=== PATIENT | male | born 1945 | race Caucasian/White ===

== ENCOUNTER 2019-06-26 16:04 | Inpatient (IN) | payer MEDICARE ==
[~2019-06-26] VITALS: Ht 182.9 cm; Wt 98.7 kg
[2019-06-26] MEDS ORDERED: TETANUS/DIPHTHERIA TOXOID [ADULT] 0.5 ML VIAL IM ONE (16:14)
[2019-06-26 16:21] LABS: BASOPHILS % (AUTO) 0.2 % (0.0-5.0); EOSINOPHILS % (AUTO) 0.4 % (0.0-8.0); HEMATOCRIT 44.7 % (42-54); LYMPHOCYTES % (AUTO) 2.6 % (21.0-51.0); MEAN CORPUSCULAR HEMOGLOBIN 29.6 pg (27.0-33.0); MEAN CORPUSCULAR HGB CONC 33.1 g/dL (32.0-36.0); MEAN CORPUSCULAR VOLUME 89.4 fL (79-99); MONOCYTES % (AUTO) 10.4 % (3.0-13.0); NEUTROPHILS % (AUTO) 85.8 % (40.0-77.0); PLATELET COUNT (AUTO) 185 K/uL (130-400); RED CELL DISTRIBUTION WIDTH 13.7 % (11.0-15.5); WHITE BLOOD COUNT (AUTO) 20.9 K/uL (4.8-10.8)
[2019-06-26 16:33] LABS: CREATININE 1.3 mg/dL (0.5-1.5); POTASSIUM 4.2 mmol/L (3.5-5.1)
[2019-06-26 16:36] LABS: INR 0.99 (0.85-1.15); PARTIAL THROMBOPLASTIN TIME 30.8 SEC (26.3-35.5); PROTHROMBIN TIME 10.7 SEC (9.6-11.6)
[2019-06-26 17:01] LABS: ALBUMIN 4.2 g/dL (3.5-5.0); TOTAL PROTEIN, SERUM 7.5 g/dL (6.0-8.3)
[2019-06-26 17:06] LABS: APPEARANCE,URINE CLOUDY (CLEAR); BILIRUBIN,URINE NEGATIVE (NEGATIVE); COLOR,URINE YELLOW (YELLOW); GLUCOSE, URINE (UA) 250 mg/dL (NEGATIVE); KETONES,URINE 5 mg/dL (NEGATIVE); LEUKOCYTE ESTERASE ,URINE MODERATE (NEGATIVE); NITRATE,URINE NEGATIVE (NEGATIVE); OCCULT BLOOD,URINE MODERATE (NEGATIVE); PH,URINE 5.5 (5.0-8.0); PROTEIN,URINE TRACE mg/dL (NEGATIVE); UROBILINOGEN,URINE 0.2 mg/dL (0.2-1.0)
[2019-06-26 17:13] LABS: BACTERIA,URINE Moderate /HPF (None Seen); SQUAMOUS EPITHELIAL CELL,UR Rare /HPF (0-2); WBC,URINE >100 /HPF (0-1)
[2019-06-26] MEDS ORDERED: CEFTRIAXONE SODIUM 1 GM ONE (17:21)
[2019-06-26] MEDS ORDERED: ONDANSETRON HCL 4 MG/2 ML VIAL IV PRN (19:00)
[2019-06-26] MEDS ORDERED: GLUCAGON 1MG KIT 1 MG ML IM PRN (19:15)
[2019-06-26] MEDS ORDERED: DEXTROSE 50%-WATER 50 ML DISP.SYRIN IV PRN (19:15)
[2019-06-26] MEDS: CEFTRIAXONE SODIUM 1 GM IVP SCH (19:15)
[2019-06-26] MEDS: SODIUM CHLORIDE 0.9% 1000ML 1,000 ML IV SCH (19:15)
[2019-06-26] MEDS ORDERED: KETOROLAC TROMETHAMINE 30MG/ML IV PRN (19:15)
[2019-06-26] MEDS ORDERED: KETOROLAC TROMETHAMINE 30MG/ML ONE (19:32)
[2019-06-26] MEDS: INSULIN HUMULIN R 100 UNIT/ML 3ML SQ SCH (21:00)
[2019-06-26 21:35] VITALS: BP 137/77
[2019-06-26 23:00] VITALS: BP 132/79
[2019-06-27] MEDS: FAMOTIDINE/PF 20 MG/2 ML VIAL IV SCH ×3 (00:06→20:10)
[2019-06-27] MEDS ORDERED: METF-444 PO ×2 (01:40)
[2019-06-27] MEDS ORDERED: CELE-84 PO (01:40)
[2019-06-27] MEDS ORDERED: OMEP20TA25 PO (01:40)
[2019-06-27] MEDS ORDERED: VIT-12 PO (01:40)
[2019-06-27] MEDS ORDERED: CHOL2000 PO (01:40)
[2019-06-27] MEDS ORDERED: MAGN250T10 PO (01:40)
[2019-06-27] MEDS ORDERED: CYAN50008 PO (01:40)
[2019-06-27] MEDS ORDERED: POTA99TA21 PO (01:40)
[2019-06-27] MEDS ORDERED: GLIP5TAB11 PO ×2 (01:40)
[2019-06-27 03:00] VITALS: BP 136/88
[2019-06-27] MEDS: SODIUM CHLORIDE 0.9% 1000ML 1,000 ML IV SCH ×2 (04:31→11:15)
[2019-06-27 04:55] LABS: BASOPHILS % (AUTO) 0.2 % (0.0-5.0); EOSINOPHILS % (AUTO) 0.1 % (0.0-8.0); HEMATOCRIT 41.2 % (42-54); LYMPHOCYTES % (AUTO) 3.5 % (21.0-51.0); MEAN CORPUSCULAR HEMOGLOBIN 29.7 pg (27.0-33.0); MEAN CORPUSCULAR HGB CONC 32.8 g/dL (32.0-36.0); MEAN CORPUSCULAR VOLUME 90.5 fL (79-99); MONOCYTES % (AUTO) 10.1 % (3.0-13.0); PLATELET COUNT (AUTO) 164 K/uL (130-400); RED BLOOD CELL COUNT(AUTO) 4.55 MIL/uL (4.50-6.20); WHITE BLOOD COUNT (AUTO) 17.9 K/uL (4.8-10.8)
[2019-06-27 05:13] LABS: HEMOGLOBIN A1C 6.9 % (4.0-6.0)
[2019-06-27 05:30] LABS: ALANINE AMINOTRANSFERASE 31 U/L (12-78); ALBUMIN 3.4 g/dL (3.5-5.0); ASPARTATE AMINOTRANSFERASE 29 U/L (10-37); BILIRUBIN,TOTAL 0.7 mg/dL (0.2-1.0); CARBON DIOXIDE 28 mmol/L (21-32); CHLORIDE 105 mmol/L (101-111); CREATININE 1.2 mg/dL (0.5-1.5); GLOMERULAR FILTR. RATE CALC 63 mL/min (>60); GLUCOSE,RANDOM 122 mg/dL (70-105); MYOGLOBIN 406 ng/mL (10-92); POTASSIUM 4.6 mmol/L (3.5-5.1); SODIUM SERUM 141 mmol/L (136-145); TOTAL PROTEIN, SERUM 6.7 g/dL (6.0-8.3); TROPONIN I < 0.04 ng/mL (0.00-0.06); UREA NITROGEN, BLOOD 22 mg/dL (7-18); URIC ACID 5.3 mg/dL (2.6-7.2)
[2019-06-27 05:40] LABS: CREATINE KINASE, TOTAL 940 U/L (21-232)
[2019-06-27 06:07] LABS: ERYTHROCYTE SEDIMENTATION RATE 30 MM/HR (0-20)
[2019-06-27] MEDS: INSULIN HUMULIN R 100 UNIT/ML 3ML SQ SCH ×4 (06:07→20:17)
[2019-06-27] MEDS: CEFTRIAXONE SODIUM 1 GM IVP SCH ×2 (06:18→20:09)
--- NOTE | 2019-06-27 07:40 | NUR ---
NOTE PATIENT AAOX3. DENIES PAIN AT THIS TIME IF HE DOES NOT MOVE HIS RIGHT KNEE OTHERWISE HE HAS SWELLING AND PAIN TO RIGHT KNEE FROM FALL HE SUFFERED AT HOME. HE WAS THEN STUCK AT HOME BECAUSE HE FELL DOWN INSIDE HIS TRAVEL TRAILER AND WAS NOT ABLE TO GET UP OR CALL FOR HELP FOR ONE DAY. FINALLY HE SCREAMED FOR HELP SOMEONE HELPED HIM AND SEND AN AMBULANCE TO BRING HIM HERE. DX RHABDOMYOLYSIS, HE IS ON IVF AT 125 CC/HR.
[2019-06-27 08:00] VITALS: BP 129/77
[2019-06-27 11:00] VITALS: BP 121/71
[2019-06-27 16:00] VITALS: BP 122/73
--- NOTE | 2019-06-27 17:45 | NUR ---
D/C PLAN CM spoke to pt regarding d/c planning. Pt is ind. and lives alone. States he lives in [facility]. CM asked if any local family or friends. States he does not have anyone at this time to assist. CM spoke to pt about d/c planning to inpatient rehab at [facility] for PT. States he prefers to return home. States he will think about it. Pt is pending u/s and ortho consult. States he was ind. with ADLs previously and has a cane to ambulate. Plan to home vs IRU. CM to f/u. Addendum: 06/27/19 at 1746 by MARY KATE BARTHOLOMEW CM Amended: Links added.
[2019-06-27] MEDS ORDERED: CELECOXIB 200 MG CAP PO PRN (18:30)
[2019-06-27 19:53] VITALS: BP 140/85
[2019-06-27 23:41] VITALS: BP 138/82
[2019-06-28 04:39] VITALS: BP 135/81
[2019-06-28 05:04] LABS: BASOPHILS % (AUTO) 0.1 % (0.0-5.0); HEMATOCRIT 38.8 % (42-54); LYMPHOCYTES % (AUTO) 5.5 % (21.0-51.0); MEAN CORPUSCULAR HGB CONC 32.5 g/dL (32.0-36.0); MEAN CORPUSCULAR VOLUME 89.2 fL (79-99); MONOCYTES % (AUTO) 8.1 % (3.0-13.0); NEUTROPHILS % (AUTO) 85.8 % (40.0-77.0); PLATELET COUNT (AUTO) 143 K/uL (130-400); RED BLOOD CELL COUNT(AUTO) 4.35 MIL/uL (4.50-6.20); RED CELL DISTRIBUTION WIDTH 13.7 % (11.0-15.5); WHITE BLOOD COUNT (AUTO) 12.4 K/uL (4.8-10.8)
[2019-06-28 05:40] LABS: ALBUMIN 2.8 g/dL (3.5-5.0); BILIRUBIN,TOTAL 0.5 mg/dL (0.2-1.0); POTASSIUM 3.6 mmol/L (3.5-5.1); TOTAL PROTEIN, SERUM 6.3 g/dL (6.0-8.3)
[2019-06-28] MEDS: INSULIN HUMULIN R 100 UNIT/ML 3ML SQ SCH ×4 (05:45→21:00)
[2019-06-28 06:01] LABS: CRP QUANTITATIVE 471.9 mg/L (0.00-9.0)
[2019-06-28] MEDS: CEFTRIAXONE SODIUM 1 GM IVP SCH ×2 (06:48→19:39)
[2019-06-28 08:17] VITALS: BP 129/91
[2019-06-28] MEDS: FAMOTIDINE/PF 20 MG/2 ML VIAL IV SCH ×2 (08:22→21:00)
[2019-06-28] MEDS: PANTOPRAZOLE SODIUM 40 MG TABLET.DR PO SCH (08:23)
[2019-06-28] MEDS: CYANOCOBALAMIN (VITAMIN B-12) 1,000 MCG TABLET PO SCH (08:23)
[2019-06-28] MEDS: ZINC PO SCH (08:24)
[2019-06-28] MEDS: [UNRECOGNIZED DRUG - OTHER] PO SCH (08:24)
[2019-06-28] MEDS: COPPER PO SCH (08:24)
[2019-06-28] MEDS: VIT A PO SCH (08:24)
[2019-06-28] MEDS: SELENIUM PO SCH (08:24)
[2019-06-28] MEDS: CHOLECALCIFEROL 50 MCG PO SCH (08:25)
[2019-06-28] MEDS ORDERED: LIDOCAINE 1%-EPI 1:100,000 20 ML VIAL IJ SCH (09:00)
[2019-06-28] MEDS: SODIUM CHLORIDE 0.9% 1000ML 1,000 ML IV SCH ×3 (09:13→16:45)
--- NOTE | 2019-06-28 09:15 | NUR ---
DR. Katlyn CELESTIN/Tres CHOI HERE TO EVALUATE PT. PT DOING WELL. DENIES PAIN TO RIGHT KNEE AT THIS. LEG IS SWOLLEN. DR. CHOI SPOKE TO PT AND INFORMED HIM OF HIS RECOMMENDATIONS TO ASPIRATE KNEE OR LEAVE KNEE ALONE TO SEE IF IMPROVEMENT OCCURS. PT DECIDED TO PROCEED WITH ASPIRATION OF RIGHT KNEE. DR. CHOI TO PERFORM LATER IN DAY.
[2019-06-28 11:39] VITALS: BP 144/89
--- NOTE | 2019-06-28 12:15 | NUR ---
DR. CHOI HERE FOR PROCEDURE. TIME OUT PERFORMED AT [address] CHOI PERFORMED ASPIRATION OF RIGHT KNEE AT BEDSIDE USING STERILE TECHNIQUE. PT TOLERATED PROCEDURE WELL. ORDERS RECEIVED AND CARRIED OUT. MICHA WRAP TO RIGHT KNEE PER DR. CHOI. ORDERS CARRIED OUT. NO REDNESS, SWELLING, BLEEDING NOTED TO SITE. PT INSTRUCTED TO REMAIN IN BED.
[2019-06-28 13:51] LABS: APPEARANCE BODY FLUID TURBID (CLEAR); BF LYMPHOCYTE 3 %; BF MESOTHELIAL 1 %; BF MONOCYTE 3 %; COLOR,BODY FLUID YELLOW (LT YELLOW); SPECIMENTYPE,BODY FLUID SYNOVIAL; TOTAL VOLUME,BODY FLUID 20 mL
[2019-06-28 13:52] LABS: BODY FLUID RBC 2125 /cu. mm.; BODY FLUID WBC 73275 /cu. mm.
--- NOTE | 2019-06-28 14:05 | NUR ---
DR. CAMACHO SAUER HERE TO EVALUATE. ORDERS TO CONTINUE ROCEPHIN AND WILL AWAIT RESULTS FROM ASPIRATION OF KNEE.
[2019-06-28] MEDS ORDERED: VANCOMYCIN PROTOCOL PER PHARMACY IV SCH (14:45)
[2019-06-28] MEDS ORDERED: COMPOUND IV REFRIGERATED 1 EACH IVSOLN MISC PRN (15:15)
[2019-06-28] MEDS: VANCOMYCIN 1.5 GM in SODIUM CHLORIDE 0.9% 250 ML IV SCH (16:50)
[2019-06-28 17:09] VITALS: BP 135/87
[2019-06-28 20:00] VITALS: BP 120/77
--- NOTE | 2019-06-28 21:25 | NUR ---
SURGERY Dr CHOI called and scheduled pt for I and D of rt knee in am.He said he will come and talk to pt in am.Notified [facility] [employer] In[employer].Pt updated on POC.
[2019-06-28 23:55] VITALS: BP 141/93
[2019-06-29] VITALS (27 sets, daily range): BP systolic 112–149; BP diastolic 57–91
--- NOTE | 2019-06-29 04:59 | NUR ---
CONSENT Pt wants to talk to Dr Servin first before he consents for the procedure.Dr Servin said he will get the consent himself.
[2019-06-29] MEDS: CEFTRIAXONE SODIUM 1 GM IVP SCH ×2 (05:27→21:11)
[2019-06-29] MEDS: SODIUM CHLORIDE 0.9% 1000ML 1,000 ML IV SCH ×4 (05:27→23:58)
[2019-06-29 06:11] LABS: INR 0.89 (0.85-1.15); PARTIAL THROMBOPLASTIN TIME 37.3 SEC (26.3-35.5); PROTHROMBIN TIME 9.7 SEC (9.6-11.6)
[2019-06-29] MEDS: INSULIN HUMULIN R 100 UNIT/ML 3ML SQ SCH ×4 (06:12→21:20)
[2019-06-29] MEDS: VANCOMYCIN 1.5 GM in SODIUM CHLORIDE 0.9% 250 ML IV SCH ×2 (06:17→21:22)
[2019-06-29 06:23] LABS: BASOPHILS % (AUTO) 0.3 % (0.0-5.0); EOSINOPHILS % (AUTO) 0.4 % (0.0-8.0); HEMATOCRIT 38.1 % (42-54); LYMPHOCYTES % (AUTO) 10.5 % (21.0-51.0); MEAN CORPUSCULAR HEMOGLOBIN 28.9 pg (27.0-33.0); MEAN CORPUSCULAR HGB CONC 32.8 g/dL (32.0-36.0); MEAN CORPUSCULAR VOLUME 88.2 fL (79-99); MONOCYTES % (AUTO) 8.6 % (3.0-13.0); NEUTROPHILS % (AUTO) 79.8 % (40.0-77.0); PLATELET COUNT (AUTO) 165 K/uL (130-400); RED BLOOD CELL COUNT(AUTO) 4.32 MIL/uL (4.50-6.20); RED CELL DISTRIBUTION WIDTH 13.4 % (11.0-15.5); WHITE BLOOD COUNT (AUTO) 7.9 K/uL (4.8-10.8)
[2019-06-29 06:47] LABS: ALBUMIN 2.2 g/dL (3.5-5.0); BILIRUBIN,TOTAL 0.7 mg/dL (0.2-1.0); CREATININE 0.9 mg/dL (0.5-1.5); TOTAL PROTEIN, SERUM 6.2 g/dL (6.0-8.3)
[2019-06-29] MEDS ORDERED: LIDOCAINE PF 2% 5ML ABBOJECT ONE (07:10)
[2019-06-29] MEDS ORDERED: ONDANSETRON HCL 4 MG/2 ML VIAL ONE (07:10)
[2019-06-29] MEDS ORDERED: GLYCOPYRROLATE 1 MG/5 ML SYRINGE ONE (07:11)
[2019-06-29] MEDS ORDERED: NEOSTIGMINE 5MG/5ML SYR IV ONE (07:11)
[2019-06-29] MEDS ORDERED: DEXAMETHASONE SOD PHOSPHATE 10MG/ML 1ML VIAL ONE (07:11)
[2019-06-29] MEDS ORDERED: PROPOFOL 10 MG/ML 20ML VIAL IV ONE (07:11)
[2019-06-29] MEDS ORDERED: MIDAZOLAM HCL 1 MG/ML 2ML VIAL ONE (07:11)
[2019-06-29] MEDS ORDERED: FENTANYL CITRATE PF 50 MCG/1 ML 2ML VIAL ONE ×2 (07:12→08:45)
[2019-06-29] MEDS ORDERED: ROCURONIUM 10MG/1ML SYR 10 MG/ML ML ONE (07:12)
--- NOTE | 2019-06-29 07:20 | NUR ---
SURGERY PT TAKEN TO PROCEDURE FOR I&D BY OR STAFF. PT DENIES ANY PAIN AT THIS TIME.
[2019-06-29] MEDS ORDERED: EPHEDRINE SULFATE 50 MG/ML AMPULE ONE (08:59)
[2019-06-29] MEDS ORDERED: ENOXAPARIN SODIUM 40 MG/0.4 ML SYRINGE SQ SCH (09:00)
[2019-06-29] MEDS: [UNRECOGNIZED DRUG - OTHER] PO SCH (09:00)
[2019-06-29] MEDS: CHOLECALCIFEROL 50 MCG PO SCH (09:00)
[2019-06-29] MEDS: VIT A PO SCH (09:00)
[2019-06-29] MEDS: COPPER PO SCH (09:00)
[2019-06-29] MEDS: ZINC PO SCH (09:00)
[2019-06-29] MEDS: SELENIUM PO SCH (09:00)
[2019-06-29] MEDS: ACETAMINOPHEN EXTRA STRENGTH 500 MG TABLET PO SCH ×2 (09:30→21:12)
[2019-06-29] MEDS ORDERED: POTASSIUM CHLORIDE 20MEQ/100ML 100 ML IV PRN (09:30)
[2019-06-29] MEDS ORDERED: OXYCODONE HCL 5 MG TAB PO PRN (09:30)
--- NOTE | 2019-06-29 10:35 | NUR ---
PROCEDURE PT RETURNED FROM SURGERY BY PACU STAFF LASHANDA RN. PT AAOX3. NEW ORDERS RECEIVED FOR SALINE AT 60ML/HR PER DR. CHOI. TEDS PLACED ON OPERATED KNEE PER DR. CHOI. DRSG TO RIGHT LEG DRY AND INTACT. NO BLEEDING, OOZING NOTED TO SITE. CECILIA X1 IN PLACE DRAINING WITH 10ML OF SANGUINOUS FLUID IN PLACE. DENIES PAIN.
[2019-06-29] MEDS: PANTOPRAZOLE SODIUM 40 MG TABLET.DR PO SCH (11:00)
--- NOTE | 2019-06-29 11:00 | NUR ---
DR DR. PELLETIER AND DR. URIOSTEGUI HERE TO EVALUATE PT. PER DR. SAUER, PT TO CONTINUE CURRENT ANTIBIOTIC TX.
[2019-06-29] MEDS: CYANOCOBALAMIN (VITAMIN B-12) 1,000 MCG TABLET PO SCH (11:01)
[2019-06-29] MEDS: FAMOTIDINE/PF 20 MG/2 ML VIAL IV SCH ×2 (11:01→21:11)
--- NOTE | 2019-06-29 11:30 | NUR ---
SITE CHECK SITE TO RIGHT KNEE DRSG DRY AND INTACT. JPX1 INTACT. 20ML OF SANGUINEOUS DRAINAGE
--- NOTE | 2019-06-29 12:30 | NUR ---
SITE CHECK SITE TO RIGHT KNEE DRSG DRY AND INTACT. JPX1 INTACT. 20ML OF SANGUINEOUS DRAINAGE
--- NOTE | 2019-06-29 12:45 | NUR ---
RESPIRATORY RESPIRATORY HERE. TEaching PROVIDED FOR IS EVERY HOUR WHILE AWAKE. COUGHING AND DEEP BEARTHING ENCOURAGED EVERY 2 HOURS. PT VERBALIZED UNDERSTANDING.
[2019-06-29] MEDS: PSYLLIUM SEED 1 EACH PACKET PO SCH (13:08)
--- NOTE | 2019-06-29 13:30 | NUR ---
SITE CHECK SITE TO RIGHT KNEE DRSG DRY AND INTACT. JPX1 INTACT. 20ML OF SANGUINEOUS DRAINAGE
--- NOTE | 2019-06-29 16:04 | NUR ---
SITE CHECK SITE TO RIGHT KNEE DRSG DRY AND INTACT. JPX1 INTACT. 20ML OF SANGUINEOUS DRAINAGE
--- NOTE | 2019-06-29 16:44 | NUR ---
REPORT REPORT GIVEN TO OLIVER ACEVES. PT DOING WELL. DENIES ANY PAIN. SITTING IN BED. RESTING
--- NOTE | 2019-06-29 21:26 | NUR ---
CECILIA DRAIN Cecilia drain came out,as per pt,"It must have been stuck when I got up to the bedside commode'.Cecilia tubing tip intact.No bleeding noted.Elvis wrap bandage to rt knee dry and intact,good CMS.Dr Servin notified via phone.Cecilia drain ahd 10 ml serousanguinous drainage. Addendum: 06/29/19 at 2128 by DANY BRADY RN RN Amended: Links added.
[2019-06-30] MEDS: ACETAMINOPHEN EXTRA STRENGTH 500 MG TABLET PO SCH ×3 (01:30→17:20)
[2019-06-30] MEDS: SODIUM CHLORIDE 0.9% 1000ML 1,000 ML IV SCH ×2 (02:10→13:34)
[2019-06-30 03:37] VITALS: BP 110/63
[2019-06-30 05:25] LABS: BASOPHILS % (AUTO) 0.1 % (0.0-5.0); HEMATOCRIT 35.2 % (42-54); LYMPHOCYTES % (AUTO) 7.9 % (21.0-51.0); MEAN CORPUSCULAR HEMOGLOBIN 29.5 pg (27.0-33.0); MEAN CORPUSCULAR HGB CONC 33.2 g/dL (32.0-36.0); MEAN CORPUSCULAR VOLUME 88.7 fL (79-99); MONOCYTES % (AUTO) 8.6 % (3.0-13.0); NEUTROPHILS % (AUTO) 82.7 % (40.0-77.0); PLATELET COUNT (AUTO) 192 K/uL (130-400); RED BLOOD CELL COUNT(AUTO) 3.97 MIL/uL (4.50-6.20); RED CELL DISTRIBUTION WIDTH 13.2 % (11.0-15.5); WHITE BLOOD COUNT (AUTO) 8.3 K/uL (4.8-10.8)
[2019-06-30] MEDS: CEFTRIAXONE SODIUM 1 GM IVP SCH ×2 (05:36→21:04)
--- NOTE | 2019-06-30 05:59 | NUR ---
STATUS Pt sleeping this time,,was medicated once with Oxycodone for pain.Rt knee dressing reinforced,pt states he can move his rt knee better,swelling had subsided.Good CMS noted to rt foot.
[2019-06-30] MEDS: INSULIN HUMULIN R 100 UNIT/ML 3ML SQ SCH ×4 (06:06→21:29)
[2019-06-30 06:22] LABS: ALBUMIN 2.3 g/dL (3.5-5.0); BILIRUBIN,TOTAL 0.4 mg/dL (0.2-1.0); POTASSIUM 3.6 mmol/L (3.5-5.1); TOTAL PROTEIN, SERUM 5.9 g/dL (6.0-8.3)
[2019-06-30 08:25] VITALS: BP 116/61
[2019-06-30] MEDS: ZINC PO SCH (09:00)
[2019-06-30] MEDS: CHOLECALCIFEROL 50 MCG PO SCH (09:00)
[2019-06-30] MEDS: SELENIUM PO SCH (09:00)
[2019-06-30] MEDS: [UNRECOGNIZED DRUG - OTHER] PO SCH (09:00)
[2019-06-30] MEDS: VIT A PO SCH (09:00)
[2019-06-30] MEDS: COPPER PO SCH (09:00)
[2019-06-30] MEDS: FAMOTIDINE/PF 20 MG/2 ML VIAL IV SCH ×2 (10:02→21:04)
[2019-06-30] MEDS: POLYETHYLENE GLYCOL 3350 17 GM POWD.PACK PO SCH (10:03)
[2019-06-30] MEDS: PANTOPRAZOLE SODIUM 40 MG TABLET.DR PO SCH (10:03)
[2019-06-30] MEDS: CYANOCOBALAMIN (VITAMIN B-12) 1,000 MCG TABLET PO SCH (10:04)
[2019-06-30 11:11] VITALS: BP 116/73
[2019-06-30] MEDS: PSYLLIUM SEED 1 EACH PACKET PO SCH (11:15)
[2019-06-30] MEDS: VANCOMYCIN 1.5 GM in SODIUM CHLORIDE 0.9% 250 ML IV SCH ×2 (11:15→21:04)
--- NOTE | 2019-06-30 12:30 | NUR ---
PT SITTING IN CHAIR, NO COMPLAINTS WILL CONTINUE TO MONITOR.
[2019-06-30] MEDS ORDERED: LACTULOSE 20 GM/30 ML UDCUP PO SCH (14:00)
[2019-06-30 14:05] LABS: INR 0.88 (0.85-1.15); PROTHROMBIN TIME 9.6 SEC (9.6-11.6)
[2019-06-30 16:13] VITALS: BP 134/82
--- NOTE | 2019-06-30 16:15 | NUR ---
PT BACK IN BED DRESSING CHANGED CLEANED WITH NS, 4X4 TO RIGHT KNEE. PT RESTING COMFORTABLY WILL CONTINUE TO MONITOR PT.
--- NOTE | 2019-06-30 19:20 | NUR ---
VERBAL BILLIE REC'D FOR [facility] AND REFERRAL INITIATED SPOKE TO ELMIRA IZAGUIRRE INCLUDING [facility] SENT- JUST NEED COVMARIKA FORM SIGNED PT RONALD [facility] AND ANDREEA AWARE Addendum: 06/30/19 at 1920 by DEREK WHITTAKER RN CM Amended: Links added.
[2019-06-30 20:04] VITALS: BP 128/76
[2019-06-30 23:35] VITALS: BP 137/84
[2019-07-01] MEDS: SODIUM CHLORIDE 0.9% 1000ML 1,000 ML IV SCH ×2 (02:38→15:58)
[2019-07-01] MEDS: ACETAMINOPHEN EXTRA STRENGTH 500 MG TABLET PO SCH ×3 (03:08→18:06)
[2019-07-01 04:06] VITALS: BP 148/94
[2019-07-01 05:25] LABS: BASOPHILS % (AUTO) 0.4 % (0.0-5.0); EOSINOPHILS % (AUTO) 1.4 % (0.0-8.0); HEMATOCRIT 36.4 % (42-54); LYMPHOCYTES % (AUTO) 17.9 % (21.0-51.0); MEAN CORPUSCULAR HEMOGLOBIN 28.8 pg (27.0-33.0); MEAN CORPUSCULAR HGB CONC 32.7 g/dL (32.0-36.0); MEAN CORPUSCULAR VOLUME 88.1 fL (79-99); MONOCYTES % (AUTO) 12.1 % (3.0-13.0); NEUTROPHILS % (AUTO) 67.5 % (40.0-77.0); PLATELET COUNT (AUTO) 204 K/uL (130-400); RED BLOOD CELL COUNT(AUTO) 4.13 MIL/uL (4.50-6.20); RED CELL DISTRIBUTION WIDTH 13.5 % (11.0-15.5); WHITE BLOOD COUNT (AUTO) 7.3 K/uL (4.8-10.8)
[2019-07-01] MEDS: INSULIN HUMULIN R 100 UNIT/ML 3ML SQ SCH ×4 (07:30→20:59)
[2019-07-01] MEDS: CEFTRIAXONE SODIUM 1 GM IVP SCH ×2 (08:00→18:04)
[2019-07-01 08:01] VITALS: BP 146/89
[2019-07-01] MEDS: ZINC PO SCH (09:00)
[2019-07-01] MEDS: [UNRECOGNIZED DRUG - OTHER] PO SCH (09:00)
[2019-07-01] MEDS: COPPER PO SCH (09:00)
[2019-07-01] MEDS: CHOLECALCIFEROL 50 MCG PO SCH (09:00)
[2019-07-01] MEDS: VIT A PO SCH (09:00)
[2019-07-01] MEDS: SELENIUM PO SCH (09:00)
[2019-07-01] MEDS: FAMOTIDINE/PF 20 MG/2 ML VIAL IV SCH ×2 (09:30→20:58)
[2019-07-01] MEDS: POLYETHYLENE GLYCOL 3350 17 GM POWD.PACK PO SCH (09:30)
[2019-07-01] MEDS ORDERED: BISACODYL 5 MG TABLET.DR PO PRN (09:30)
[2019-07-01] MEDS: PANTOPRAZOLE SODIUM 40 MG TABLET.DR PO SCH (09:31)
[2019-07-01] MEDS: CYANOCOBALAMIN (VITAMIN B-12) 1,000 MCG TABLET PO SCH (09:32)
[2019-07-01] MEDS: VANCOMYCIN 1.5 GM in SODIUM CHLORIDE 0.9% 250 ML IV SCH ×2 (09:33→20:59)
[2019-07-01 11:15] VITALS: BP 123/74
[2019-07-01] MEDS: PSYLLIUM SEED 1 EACH PACKET PO SCH (11:30)
[2019-07-01] MEDS ORDERED: LACTULOSE 20 GM/30 ML UDCUP PO SCH (12:15)
[2019-07-01] MEDS ORDERED: BISACODYL 10 MG SUPP.RECT RC ONE (14:00)
--- NOTE | 2019-07-01 15:01 | NUR ---
CM Note: [facility] NR CM spoke to Florentino granados/Liat JOHNSON. Pt has approval. EMS arranged and faxed for today, primary nurse to call [facility] once pt ready to DC. Primary nurse aware. CM to cont to follow up.
[2019-07-01 16:21] VITALS: BP 140/87
[2019-07-01 20:19] VITALS: BP 152/93
[2019-07-01 23:16] VITALS: BP 141/89
[2019-07-02] MEDS: ACETAMINOPHEN EXTRA STRENGTH 500 MG TABLET PO SCH ×3 (02:03→18:50)
[2019-07-02 03:38] VITALS: BP 151/98
[2019-07-02] MEDS: SODIUM CHLORIDE 0.9% 1000ML 1,000 ML IV SCH (05:18)
[2019-07-02] MEDS: CEFTRIAXONE SODIUM 1 GM IVP SCH ×2 (07:20→19:38)
[2019-07-02] MEDS: INSULIN HUMULIN R 100 UNIT/ML 3ML SQ SCH ×3 (07:20→16:30)
[2019-07-02 08:00] VITALS: BP 129/71
[2019-07-02] MEDS: SELENIUM PO SCH (09:00)
[2019-07-02] MEDS: [UNRECOGNIZED DRUG - OTHER] PO SCH (09:00)
[2019-07-02] MEDS: CHOLECALCIFEROL 50 MCG PO SCH (09:00)
[2019-07-02] MEDS: VIT A PO SCH (09:00)
[2019-07-02] MEDS: ZINC PO SCH (09:00)
[2019-07-02] MEDS: COPPER PO SCH (09:00)
[2019-07-02] MEDS ORDERED: BISACODYL 10 MG SUPP.RECT RC PRN (09:30)
[2019-07-02 12:00] VITALS: BP 131/79
[2019-07-02] MEDS: FAMOTIDINE/PF 20 MG/2 ML VIAL IV SCH (12:18)
[2019-07-02] MEDS: CYANOCOBALAMIN (VITAMIN B-12) 1,000 MCG TABLET PO SCH (12:19)
[2019-07-02] MEDS: PANTOPRAZOLE SODIUM 40 MG TABLET.DR PO SCH (12:20)
[2019-07-02] MEDS: POLYETHYLENE GLYCOL 3350 17 GM POWD.PACK PO SCH (12:20)
--- NOTE | 2019-07-02 13:36 | NUR ---
RANDA SCREEN - LOS X 6 DAYS Pt admitted for Acute rhabdomyolysis. Pt tolerating 75gmCCD with no report of GI distress. Good PO intake at 100%. Pt s/p I&D. LBM 06/30. Recommend 60mL ProMod QD. RD to continue to monitor. Please notify as additional nutrition concerns arise. Thank you. Addendum: 07/02/19 at [address] DE LA PAZ [address] RD Amended: Links added.
[2019-07-02] MEDS: PSYLLIUM SEED 1 EACH PACKET PO SCH (14:24)
[2019-07-02 16:00] VITALS: BP 116/80
--- NOTE | 2019-07-02 19:53 | NUR ---
PT REPORT GIVEN VIA TELEPHONE TO LAURO JAMESON AT LOCATED WITHIN [facility].
--- NOTE | 2019-07-02 20:36 | NUR ---
DISCHARGE PT DISCHARGED TO [facility]. PAPERWORK GIVEN TO EMS. ALL PATIENT BELONGINGS COLLECTED AND GIVEN TO EMS. DRESSING TO RIGHT KNEE DRY AND INTACT. PICC LINE TO LEFT UPPER EXTREMITY DRESSING DRY ND INTACT, PIV TO RIGHT FOREARM DISCONTINUED, CATHETER TIP INTACT. PATIENT TRANSFERRED OUT VIA STRETCHER AWAKE, ALERT AND VERBALLY RESPONSIVE. NO C/O PAIN OR DISCOMFORT AT THIS TIME.
[2019-07-02] MEDS ORDERED: VANCOMYCIN 1.25 GM in SODIUM CHLORIDE 0.9% 250 ML IV SCH (21:00)
[2019-09-13] MEDS ORDERED: POLY17PO29 PO (01:07)
[2019-09-13] MEDS ORDERED: PANT40TA PO (01:07)
[2019-09-13] MEDS ORDERED: ZINC57OI4 TP (01:07)
[2019-09-13] MEDS ORDERED: ONDA-104 PO (01:07)
[2019-09-13] MEDS ORDERED: LOPE2TAB26 PO (01:07)
[2019-09-13] MEDS ORDERED: AMOX500C2 PO (01:07)
[2019-09-13] MEDS ORDERED: TRAM50TA4 PO (01:07)
[2019-09-13] MEDS ORDERED: DOCU100C33 PO (01:07)
[2019-09-13] MEDS ORDERED: DIPH25TA51 PO (01:07)
[2019-09-13] MEDS ORDERED: ATOR40TA71 PO (01:07)
[2019-09-13] MEDS ORDERED: ENOX40DI9 SQ (01:07)
[2019-09-13] MEDS ORDERED: MECL-160 PO (01:07)
[2019-09-13] MEDS ORDERED: FAMO40OR5 PO (01:07)
[2019-09-13] MEDS ORDERED: AEC81 PO (01:07)
== END 2019-07-02 20:36 | DRG 854 ==
LOC: EDH 16:04 → EDHIP 18:56 → 4AH 20:58 → 3AH 20:59
PROVIDERS: ADMIT Internal Medicine; ATTEND Internal Medicine
PROC: 3E0234Z Introduction of Serum, Toxoid and Vaccine into Muscle, Percutaneous Approach (ICD-10-PCS; principal; 2019-06-26)
PROC: 0S9C3ZZ Drainage of Right Knee Joint, Percutaneous Approach (ICD-10-PCS; 2019-06-28)
PROC: 0S9C0ZZ Drainage of Right Knee Joint, Open Approach (ICD-10-PCS; 2019-06-29)
PROC: 02HV33Z Insertion of Infusion Device into Superior Vena Cava, Percutaneous Approach (ICD-10-PCS; 2019-06-30)
PROC: B548ZZA Ultrasonography of Superior Vena Cava, Guidance (ICD-10-PCS; 2019-06-30)
PROC: B5181ZA Fluoroscopy of Superior Vena Cava using Low Osmolar Contrast, Guidance (ICD-10-PCS; 2019-06-30)
DX: A41.9 Sepsis, unspecified organism (principal); N39.0 Urinary tract infection, site not specified; M62.82 Rhabdomyolysis; M00.9 Pyogenic arthritis, unspecified; E11.9 Type 2 diabetes mellitus without complications; W18.30XA Fall on same level, unspecified, initial encounter; E66.9 Obesity, unspecified; B95.2 Enterococcus as the cause of diseases classified elsewhere; I10 Essential (primary) hypertension; I45.10 Unspecified right bundle-branch block; K59.00 Constipation, unspecified; M17.11 Unilateral primary osteoarthritis, right knee; Y92.009 Unspecified place in unspecified non-institutional (private) residence as the place of occurrence of the external cause; Z23 Encounter for immunization; Y93.89 Activity, other specified; Y99.8 Other external cause status; Z83.3 Family history of diabetes mellitus; Z90.49 Acquired absence of other specified parts of digestive tract; Z79.899 Other long term (current) drug therapy; Z68.29 Body mass index [BMI] 29.0-29.9, adult
CPT/HCPCS: 36415; 71045; 73562; 74018; 80053; 80202; 81001; 82550; 82948; 83036; 83605; 83874; 84145; 84443; 84484; 84550; 85025; 85610; 85651; 85730; 86140; 87040; 87070; 87071; 87076; 87077; 87088; 87186; 87205; 89051; 89060; 90714; 93005; 93971; 97039; C1894; G0378; J0696; J1100; J1815; J1885; J2001; J2250; J2405; J2704; J2710; J3010; J3370; J3490; J7030; J7050

== ENCOUNTER 2019-09-10 08:59 | Emergency (ER) | payer MEDICARE ==
[2019-09-10] MEDS ORDERED: CEFTRIAXONE SODIUM 2 GM VIAL ONE (12:00)
[2019-09-10] MEDS ORDERED: SODIUM CHLORIDE 0.9% 100 ML IV ONE (12:02)
== END 2019-09-10 13:20 | disposition home or self-care (01) ==
LOC: EDH 08:59
DX: N39.0 Urinary tract infection, site not specified (principal); E78.00 Pure hypercholesterolemia, unspecified; K21.9 Gastro-esophageal reflux disease without esophagitis; E11.9 Type 2 diabetes mellitus without complications; M19.90 Unspecified osteoarthritis, unspecified site; Z90.49 Acquired absence of other specified parts of digestive tract
CPT/HCPCS: 36415; 80053; 81001; 85025; 87077; 87088; 87186; 96374; 99283; J0696

== ENCOUNTER 2019-09-12 | Inpatient (IN) | payer MEDICARE | END 2019-09-14 12:38 | disposition home or self-care (01) | DRG 689 | PROVIDERS: ADMIT Family Medicine ==